=== PATIENT | female | born 1960 | race Caucasian/White ===

== ENCOUNTER 2017-12-26 10:49 | Emergency (ER) | payer BC ==
[~2017-12-26] VITALS: Ht 166.4 cm; Wt 107.8 kg
[2017-12-26 10:53] VITALS: TEMP 36.4; Ht 166.4 cm; Wt 107.8 kg
--- NOTE | 2017-12-26 12:16 | DIAGNOSTIC IMAGING REPORT ---
R VENOUS DOPP LOWER EXT UNILAT CLINICAL HISTORY: 57 years-old Female presenting with right leg pain, swelling, eval DVT. TECHNIQUE: Real-time grayscale and color and spectral Doppler ultrasound imaging of the veins of the right lower extremity was performed. Compression and augmentation were also utilized. COMPARISON: None. FINDINGS: Right: Common femoral vein: Patent. Greater saphenous vein: Patent. Deep femoral vein: Patent. Femoral vein: Patent. Popliteal vein: Patent. Calf veins: Patent. Other: None. IMPRESSION: No evidence of deep venous thrombosis. Electronically signed by: Jered Paige M.D. 12/26/2017 12:15 PM Dictated Date/Time: 12/26/2017 12:14 PM
[2017-12-26 12:53] VITALS: BP 152/91; PULSE 70; O2SAT 100
--- NOTE | 2017-12-26 12:56 | EMERGENCY ROOM VISIT NOTE ---
ED Visit Note First contact with patient: 11:10 CHIEF COMPLAINT: Right knee and calf pain HISTORY OF PRESENT ILLNESS: This 57-year-old female patient presents to the emergency department by private vehicle with complaint of right calf pain for the past month. She states that the pain has been getting worse, is now constant, throbbing, and worse with walking. She describes the pain like a cramp and rates it 8/10. She has tried Tylenol and ibuprofen with minimal improvement in her pain. She denies any injury to the leg. She denies any recent travel or immobilization, but states that she sits a lot for her job and she is here because she is concerned about a blood clot. The patient has not noticed any swelling or bruising. There is pain behind the knee. The patient states they are able to walk on it, but this increases pain. No numbness or tingling. No previous injuries to this knee. No ankle, foot or hip pain. She denies any fevers or chills, chest pain, shortness of breath, palpitations, dizziness or syncope, back pain, weakness of the lower extremities, saddle paresthesias, bowel or bladder dysfunction, or urinary symptoms. REVIEW OF SYSTEMS: A complete 10 point review of systems was reviewed with the patient with pertinent positives and negatives as per history of present illness. All else were negative. ALLERGIES: No known allergies MEDICATIONS: No medications PMH: No significant past medical or surgical history. SOCIAL HISTORY: Lives at home. Denies tobacco use. PHYSICAL EXAM: Vital Signs: Reviewed Nurse's notes, vital signs stable. GENERAL : Pleasant and cooperative, no acute distress, but appears in pain, well- developed, well-nourished. MENTAL STATUS: Alert, oriented to person place and time, and cooperative. MUSCULOSKELETAL: The right knee is not swollen. There is no ecchymosis. There is no joint effusion present. The patient is tender to palpation of the posterior knee and posterior/medial calf. There is no joint line tenderness. Range of motion is normal in the knee and ankle. Strength of the quads and hamstrings is 5/5. There is no pain with varus and valgus stressing of the knee. The foot and toes are warm and well-perfused. Dorsalis pedis pulse 2+. Sensation to pain and light touch is intact. Capillary refill less than 2 seconds. No midline tenderness of the lumbar spine. Negative straight leg raise. EMERGENCY DEPARTMENT COURSE: I examined the patient. Venous duplex of the right lower extremity is negative for DVT or any other abnormalities. Patient was instructed on continued treatment of her pain at home, was encouraged to follow-up with her PCP and to seek physical therapy, she verbalized understanding. The patient was discharged home in good condition and ambulatory. Current/Historical Medications No Active Prescriptions or Reported Meds Allergies Coded Allergies: No Known Allergies (Unverified , 12/26/17) Vital Signs Date Time Temp Pulse Resp B/P (MAP) Pulse Ox O2 Delivery O2 Flow Rate FiO2 12/26/17 12:53 70 18 152/91 100 Room Air 12/26/17 10:53 36.4 90 18 136/86 99 Room Air Departure Information Impression Primary Impression: Right calf pain Dispostion Home / Self-Care Condition GOOD Prescriptions No Active Prescriptions or Reported Meds Referrals Baltazar Babb M.D. (PCP) Patient Instructions ED Muscle Pain Leg Cramps, My [facility] Additional Instructions DISCHARGE INSTRUCTIONS: You have been evaluated in the emergency department for your right calf pain. Ultrasound today is negative for DVT (blood clot). Alternate ice and heat to the lower leg and keep it elevated to help reduce swelling and pain. Do the calf stretches as discussed to help stretch out the muscle and reduce cramping. You may take ibuprofen 600 mg or Tylenol 1000 mg every 8 hrs for pain. Follow-up with your primary care provider in the next few days for further management of your leg pain. You may benefit from physical therapy for ongoing management of this problem.
== END 2017-12-26 13:20 | disposition home or self-care (01) ==
LOC: C.EDB 10:51 → C.EDC 13:20
DX: M79.661 Pain in right lower leg (principal)